=== PATIENT | female | born 1990 | race Caucasian/White ===

== ENCOUNTER 2018-02-04 17:21 | Outpatient (REF) | payer OTHER, SELFPAY ==
[2018-02-04 21:18] LABS: ALT 75 U/L (12-78); AST 59 U/L (15-37); Albumin 4.6 g/dL (3.4-5.0); Alkaline Phosphatase 100 U/L (46-116); Anion Gap 9.5 mmol/L (3-11); BUN 6 mg/dL (7-18); Bilirubin, Total 0.3 mg/dL (0.2-1.0); CO2 25.5 mmol/L (21.0-32.0); CREATININE 0.72 mg/dL (0.55-1.02); Calcium 9.1 mg/dL (8.5-10.1); Chloride 101 mmol/L (98-107); Glucose 82 mg/dL (70-100); Lipase 114 U/L (73-393); Potassium 4.1 mmol/L (3.5-5.1); Sodium 136 mmol/L (136-145); Total Protein 8.3 g/dL (6.4-8.2)
[2018-02-04 21:30] LABS: Abs Immature Grans 0.06 k/cumm (0.0-0.09); Absolute Basophil Count 0.06 k/cumm (0.0-0.2); Absolute Eosinophil Count 0.61 k/cumm (0.0-0.7); Absolute Lymphocyte Count 2.87 k/cumm (1.2-3.4); Absolute Monocyte Count 0.61 k/cumm (0.11-0.7); Absolute Neutrophil Count 6.34 k/cumm (1.2-6.7); Basophils % 0.6; Eosinophils % 5.8; HCT 39.5 % (36.0-46.0); HGB 13.1 g/dL (12.0-15.5); Immature Grans % 0.6; Lymphocytes % 27.2; Mean Corp. HGB Concentration 33.2 g/dL (32.0-36.0); Mean Corpuscular Volume 90.4 fL (80-95); Mean Platelet Volume 10.2 fL (8.0-11.0); Monocytes % 5.8; Platelet Count 338 x1000/uL (130-400); RBC 4.37 m/cumm (4.00-5.20); RBC Distribution Width 13.5 % (11.7-14.6); White Blood Cell Count 10.55 k/cumm (4.4-10.8)
[2018-02-04 21:45] LABS: Epithelial Cells Moderate HPF (Negative); RBC Negative (0-2); WBC Negative HPF (0-5)
[2018-02-04 21:46] LABS: Bacteria Negative HPF (Negative); C & S Indicated? No; Casts Negative LPF (Negative); Crystals Many Amorphous HPF (Negative); Mucus Negative (Negative)
== END 2018-02-04 17:22 ==
LOC: LBN 17:21
PROVIDERS: PCP Family Medicine; Visit Provider Nurse Practitioner Family
DX: R10.9 Unspecified abdominal pain (principal); R19.7 Diarrhea, unspecified
CPT/HCPCS: 80053; 83690; 81015; 85025

== ENCOUNTER 2018-02-05 10:34 | Outpatient (REF) | payer OTHER, SELFPAY ==
[2018-02-07 11:00] LABS: Campylobacter PCR SEE COMMENTS; Salmonella PCR SEE COMMENTS; Shiga Toxin PCR SEE COMMENTS; Shigella/Enteroinvasive Ecoli SEE COMMENTS
== END 2018-02-05 10:35 ==
LOC: NCHCN 10:34
PROVIDERS: PCP Family Medicine; Visit Provider Nurse Practitioner Family
DX: R10.9 Unspecified abdominal pain (principal); R19.7 Diarrhea, unspecified
CPT/HCPCS: 87505; 87177

== ENCOUNTER 2018-02-07 09:12 | Outpatient (REF) | payer OTHER, SELFPAY | END 2018-02-07 09:13 | LOC: NCHCN 09:12 | PROVIDERS: PCP Family Medicine; Visit Provider Family Medicine | DX: R10.9 Unspecified abdominal pain (principal); R19.7 Diarrhea, unspecified | CPT/HCPCS: 87177 ==

== ENCOUNTER 2018-02-08 11:44 | Outpatient (REF) | payer OTHER, SELFPAY | END 2018-02-08 11:45 | LOC: NCHCN 11:44 | PROVIDERS: PCP Family Medicine; Visit Provider Nurse Practitioner Family | DX: R19.7 Diarrhea, unspecified (principal); R10.32 Left lower quadrant pain | CPT/HCPCS: 82272; 83630; 87177 ==

== ENCOUNTER 2018-03-01 11:14 | Outpatient (REF) | payer OTHER, SELFPAY ==
--- NOTE | 2018-03-01 09:24 | PAPFT_PTH ---
PATIENT: JORDYN RAYMUNDO LOC: [facility] [id number] AGE/SX: 27/F ROOM: RE03/01/[address]: Reny Mims : 1990 BED: DIS: 03/01/2018 SPEC #: [id number] RECD: 03/05/18 12:59 STATUS: TIMBO RETriston #: [id number] LORE: 03/01/18 09:[address]: Reny Mims DEPT: [facility] Cytology RECD BY: Jolanta Timmons Tissues: 1 - CX/ENDOCX FOR PAP SMEARS Procedures: PAP THIN PREP/[facility] Screening Comments: [id number]
== END 2018-03-01 11:15 ==
LOC: NCHCN 11:14
PROVIDERS: PCP Family Medicine; Visit Provider Family Medicine
DX: Z12.4 Encounter for screening for malignant neoplasm of cervix (principal); Z00.00 Encounter for general adult medical examination without abnormal findings
CPT/HCPCS: 88142

== ENCOUNTER 2018-05-10 16:15 | Outpatient (REF) | payer OTHER, SELFPAY ==
[2018-05-10 22:06] LABS: HCT 39.3 % (36.0-46.0); HGB 12.8 g/dL (12.0-15.5); Mean Corp. HGB Concentration 32.6 g/dL (32.0-36.0); Mean Corpuscular Hemoglobin 30.3 pg (27.0-33.0); Mean Corpuscular Volume 93.1 fL (80-95); Mean Platelet Volume 10.1 fL (8.0-11.0); Platelet Count 455 x1000/uL (130-400); RBC 4.22 m/cumm (4.00-5.20); RBC Distribution Width 13.2 % (11.7-14.6); White Blood Cell Count 9.38 k/cumm (4.4-10.8)
[2018-05-10 22:11] LABS: ALT 116 U/L (12-78); AST 107 U/L (15-37); Albumin 4.3 g/dL (3.4-5.0); Alkaline Phosphatase 111 U/L (46-116); Anion Gap 9.8 mmol/L (3-11); BUN 8 mg/dL (7-18); Bilirubin, Total 0.5 mg/dL (0.2-1.0); CO2 28.2 mmol/L (21.0-32.0); CREATININE 0.74 mg/dL (0.55-1.02); Calcium 9.4 mg/dL (8.5-10.1); Chloride 100 mmol/L (98-107); Glucose 76 mg/dL (70-100); Potassium 3.8 mmol/L (3.5-5.1); Sodium 138 mmol/L (136-145); Total Protein 7.6 g/dL (6.4-8.2)
[2018-05-10 23:28] LABS: ESR 22 MM/HR (0-20)
== END 2018-05-10 16:35 ==
LOC: NCHCN 16:15
PROVIDERS: PCP Family Medicine; Visit Provider Family Medicine
DX: L40.50 Arthropathic psoriasis, unspecified (principal); R11.0 Nausea
CPT/HCPCS: 80053; 85027; 85652; 86140

== ENCOUNTER 2018-09-27 13:18 | Outpatient (REF) | payer OTHER, SELFPAY ==
[2018-09-27 21:40] LABS: TSH (W/Ref FT4) 0.66 uIU/mL (0.358-3.74); Vitamin B12 503 pg/mL (193-986)
[2018-09-30 06:41] LABS: Vitamin D 25 Total 12.5 ng/ml (30-100)
== END 2018-09-27 13:38 ==
LOC: NCHCN 13:18
PROVIDERS: PCP Family Medicine; Visit Provider Nurse Practitioner Family
DX: E55.9 Vitamin D deficiency, unspecified (principal); F41.1 Generalized anxiety disorder; F32.9 Major depressive disorder, single episode, unspecified; E66.9 Obesity, unspecified
CPT/HCPCS: 82306; 82607; 84443